=== PATIENT | female | born 1960 | race Caucasian/White ===

== ENCOUNTER → 2020-02-06 | Outpatient (CLI) | payer OTHER, BC ==
[~2020-02-06] MED LIST: ALLO100T PO; AML5T; ASP325T; LEVO50TA6 PO; LOVA20TA2 PO; METO100T12 PO; MTP100TCR; PARO30TA74 PO; POTA15TA9 PO; PRX20T; SPRN25T; TOPI25TA10 PO; TRIA1CAP4 PO; VNL37.5T; [UNRECOGNIZED DRUG - CODE]
== END ==
LOC: LABNPT 16:37
PROVIDERS: ATTEND Internal Medicine
DX: R50.9 Fever, unspecified (principal)
CPT/HCPCS: 84145

== ENCOUNTER 2020-07-16 05:47 | Outpatient (CLI) | payer BC ==
[~2020-07-16] VITALS: Ht 165.1 cm; Wt 113.6 kg
[2020-07-16] MEDS ORDERED: CETI10TA49 PO (15:25)
[2020-07-16] MEDS ORDERED: MONT10TA21 PO (15:25)
== END 2020-07-16 15:35 ==
LOC: PREOP 05:47
PROVIDERS: ATTEND Obstetrics & Gynecology
DX: Z01.818 Encounter for other preprocedural examination (principal)

== ENCOUNTER 2020-07-20 06:08 | Day surgery (SDC) | payer BC ==
[2020-07-20] VITALS (11 sets, daily range): BP systolic 114–139; BP diastolic 68–84
[~2020-07-20] VITALS: Ht 165.1 cm; Wt 113.6 kg
[~2020-07-20 06:08] MED LIST changes: +CETI10TA49 PO; +MONT10TA21 PO
[2020-07-20] MEDS ORDERED: SCOPOLAMINE 1.5 MG (TRANSDERM-SCOP) PATCH TOP ONE (06:45)
[2020-07-20] MEDS ORDERED: FAMOTIDINE 20MG/2ML IV (PEPCID) IV ONE (06:45)
[2020-07-20] MEDS ORDERED: ONDANSETRON 4 MG/2 ML (SDV) Z0FRAN IV ONE (06:45)
--- NOTE | 2020-07-20 06:50 | NUR ---
IS INSTRUCTIONS GIVEN TO PT BY RT
[2020-07-20] MEDS ORDERED: LACTATED RINGERS 1,000 ML IV PRN (06:51)
[2020-07-20] MEDS ORDERED: proPOfol 200 MG/20 ML (DIPRIVAN) VIAL IV ONE ×4 (07:04→08:25)
[2020-07-20] MEDS ORDERED: fentaNYL INJECTION 100 MCG/2 ML AMP ONE (07:04)
[2020-07-20] MEDS ORDERED: ONDANSETRON 4 MG/2 ML (SDV) Z0FRAN ONE (07:04)
[2020-07-20] MEDS ORDERED: MIDAZOLAM 2 MG/2 ML (VERSED) VIAL ONE (07:04)
[2020-07-20] MEDS ORDERED: LIDOCAINE PF 2% 5 ML (XYLOCAINE) VIAL ONE (07:04)
[2020-07-20 07:11] LABS: BASOPHILS # (AUTO) 0.1 10^3/uL (0.0-0.1); BASOPHILS % (AUTO) 2 % (0-10); EOSINOPHILS # (AUTO) 0.2 10^3/uL (0.0-0.3); EOSINOPHILS % (AUTO) 4 % (0-10); HEMATOCRIT 45 % (35-52); LYMPHOCYTES # (AUTO) 1.1 10^3/uL (1.0-4.0); LYMPHOCYTES % (AUTO) 19 % (12-44); MEAN CORPUSCULAR HEMOGLOBIN 28 pg (25-34); MEAN CORPUSCULAR HGB CONC 31 g/dL (32-36); MEAN CORPUSCULAR VOLUME 90 fL (80-99); MEAN PLATELET VOLUME 11.1 fL (9.0-12.2); MONOCYTES # (AUTO) 0.6 10^3/uL (0.0-1.0); MONOCYTES % (AUTO) 10 % (0-12); NEUTROPHILS # (AUTO) 3.8 10^3/uL (1.8-7.8); NEUTROPHILS % (AUTO) 65 % (42-75); PLATELET COUNT 247 10^3/uL (130-400); WHITE BLOOD COUNT 5.8 10^3/uL (4.3-11.0)
[2020-07-20] MEDS ORDERED: BUPIVACAINE 0.25% 30 ML (SENSORCAINE) VIAL ONE (07:11)
--- NOTE | 2020-07-20 07:12 | Progress Note-Pre Operative ---
Pre-Operative Progress Note H&P Reviewed The H&P was reviewed, patient examined and no changes noted. Date Seen by Provider: Jul 20, 2020 Time Seen by Provider: 07:10 Date H&P Reviewed: Jul 20, 2020 Time H&P Reviewed: 07:10 Pre-Operative Diagnosis: Postmenopausal bleeding AVERY MANN DO Jul 20, 2020 07:12
[2020-07-20] MEDS ORDERED: D5 LR IV SOLUTION 1,000 ML IV SCH (07:13)
[2020-07-20] MEDS ORDERED: IBUP-1773 PO (07:15)
[2020-07-20] MEDS ORDERED: KETOROLAC 30 MG/ML VIAL IVP ONE (07:15)
[2020-07-20] MEDS ORDERED: ONDANSETRON 4 MG/2 ML (SDV) Z0FRAN IVP PRN ×2 (07:15→08:45)
[2020-07-20] MEDS ORDERED: HYDROcodone/APAP 5 MG/325 MG (LORTAB) TAB PO PRN (07:15)
--- NOTE | 2020-07-20 07:16 | Discharge Inst-Women's Service ---
Discharge Inst-Women's Serv Depart Medication/Instructions New, Converted or Re-Newed RX: RX on Chart Problems Reviewed?: Yes Consults/Follow Up Additional Follow Up: Yes Activity Activity: Activity as Tolerated Driving Instructions: No Driving for 1 Week NO SMOKING: NO SMOKING Nothing Inside Vagina: No Douching, No [place], No Tampons Diet Discharge Diet: No Restrictions Symptoms to Report to : Bleeding Excessive, Pain Increased, Fever Over 101 Degrees F, Vaginal Bleeding Increase, Questions/Concerns For Any Problems or Questions: Contact Your Physician AVERY MANN DO Jul 20, 2020 07:16
[2020-07-20] MEDS ORDERED: BACITRACIN OINTMENT 28 GM TUBE ONE (08:22)
[2020-07-20] MEDS ORDERED: morphine INJ 10 MG/ML 1ML (SYR OR VIAL) IVP ONE (08:45)
--- NOTE | 2020-07-20 10:32 | Anesthesia-General Post-Op ---
General Patient Condition Mental Status/LOC: Same as Preop Cardiovascular: Satisfactory Nausea/Vomiting: Absent Respiratory: Satisfactory Pain: Controlled Complications: Absent Post Op Complications Complications None Follow Up Care/Instructions Patient Instructions None needed. Anesthesia/Patient Condition Patient Condition Patient is doing well, no complaints, stable vital signs, no apparent adverse anesthesia problems. GRICELDA DING DO Jul 20, 2020 10:32
--- NOTE | 2020-07-20 14:31 | OPERATIVE REPORT ---
DATE OF SERVICE: PREOPERATIVE DIAGNOSES: 1. A 60-year-old female with postmenopausal bleeding. 2. Thickened endometrium on ultrasound. 3. Left vulvar lesion. POSTOPERATIVE DIAGNOSES: 1. A 60-year-old female with postmenopausal bleeding. 2. Thickened endometrium on ultrasound. 3. Left vulvar lesion. PROCEDURE: D and C with excisional biopsy of left vulvar lesion. SURGEON: Avery Mann DO ANESTHESIA: LMA. ESTIMATED BLOOD LOSS: Minimal. URINE OUTPUT: 30 mL clear drained at the start of the procedure. FLUIDS: 800 mL lactated Ringer's solution. FINDINGS: A grossly normal appearing external female genitalia, grossly normal appearing cervix. A white cystic left vulvar lesion consistent grossly on examination with a sebaceous or epidermal inclusion cyst. SPECIMEN SENT: Endometrial curettings and left vulvar lesion. INDICATIONS FOR PROCEDURE: A 60-year-old female is a patient who presented to my office with postmenopausal bleeding episode and was found to have a thickened endometrium on ultrasound. I discussed with the patient in the office biopsy versus proceeding with D and C. She wished to proceed with D and C. She also discussed this lesion on her vulva that she would like taken care of her as well. Risks of procedure were discussed with the patient in detail and after all of her questions were answered, consent was obtained in the preoperative area, the patient was taken to the operating room. OPERATIVE REPORT IN DETAIL: Once in the operating room, anesthesia was found to be adequate, placed in dorsal lithotomy position, prepped and draped in normal sterile fashion. I began by draining the bladder using straight catheterization. Weighted speculum was inserted to the patient's vagina. Right angle retractor was used to visualize the cervix, which was grasped at 12 o'clock position using a long Allis clamp. I then performed a paracervical block at 3 and 9 o'clock positions on the cervix using 0.25% Marcaine. Care was taken to aspirate before injecting 5 mL were injected into each injection site. I then gently sound the uterine cavity, depth was found to be approximately 7 cm. I then gently dilated the cervix using Hegar dilators to maximum dilatation of approximately 8 mm at which point I am able to advance an endometrial curette into the endometrium. I performed a gentle curettage of all endometrial surfaces collecting a small to moderate amount of endometrial tissue, some of it does look suspicious for endometrial polyp formation. This was all sent to pathology as endometrial curettings. I then removed all the instruments from the patient's vagina. I took my attention to the left vulva where approximately 1 to 2 o'clock on the vulva, there is a white appearing nodule and it is subcutaneous. I grasped this white nodule with an Allis clamp and infiltrated the subcutaneous tissue surrounding it using the same 0.25% Marcaine that I used for paracervical block; a total of 10 mL were injected into the site. I then excised the lesion using Gonzalez scissors. This was done in an elliptical fashion at which point, I thinned that pathology specimen as left vulvar biopsy. I then reapproximated the elliptical defect using 3-0 Vicryl suture in interrupted fashion, after which there was no active bleeding noted from any of my dissection planes. I coat the cutaneous closure site with Bactrim ointment. The patient tolerated the procedure well and sent to recovery in stable condition. Lap and sponge counts were correct at the end of the procedure. Instrument counts correct as well. Job ID: [id number] DocumentID: [id number] Dictated Date: 07/20/2020 10:04:43 Edger Machine Setter Date: 07/20/2020 14:30:00 Dictated By: AVERY MANN DO
== END 2020-07-20 10:30 | disposition home or self-care (01) ==
LOC: SDC 06:08
PROVIDERS: ATTEND Obstetrics & Gynecology
DX: N84.0 Polyp of corpus uteri (principal); N90.7 Vulvar cyst; I10 Essential (primary) hypertension; E03.9 Hypothyroidism, unspecified; R93.89 Abnormal findings on diagnostic imaging of other specified body structures; E66.9 Obesity, unspecified; Z68.41 Body mass index [BMI] 40.0-44.9, adult; Z79.899 Other long term (current) drug therapy; Z88.0 Allergy status to penicillin; Z88.2 Allergy status to sulfonamides; Z88.5 Allergy status to narcotic agent; Z88.1 Allergy status to other antibiotic agents; Z87.891 Personal history of nicotine dependence; Z80.3 Family history of malignant neoplasm of breast
CPT/HCPCS: 36415; 85025; 86850; 86900; 86901; 87081; 88305; 94664